=== PATIENT | female | born 1980 | race Caucasian/White ===

== ENCOUNTER 2019-09-01 14:15 | Emergency (ER) | payer BC | END 2019-09-01 18:20 | disposition home or self-care (01) | LOC: ERS 14:15 | DX: R51 Headache (principal); I10 Essential (primary) hypertension | CPT/HCPCS: 99283 ==

== ENCOUNTER 2019-09-16 18:35 | Emergency (ER) | payer BC ==
[2019-09-16] MEDS ORDERED: Ketorolac Tromethamine 30 MG/ML VIAL ONE (20:16)
[2019-09-16] MEDS ORDERED: diphenhydrAMINE 12.5 MG/5 ML UDCUP ONE (20:16)
[2019-09-16] MEDS ORDERED: Metoclopramide HCl 10 MG/2 ML VIAL ONE (20:16)
[2019-09-16] MEDS ORDERED: diphenhydrAMINE 50 MG/ML VIAL ONE (20:17)
[2019-09-16 20:52] LABS: Bilirubin Negative (Negative); Blood, Urine Negative (Negative); Clarity Clear (Clear); Glucose, Urine (Dipstick) Normal (Negative); Leukocyte Negative Leu/uL (Negative); Nitrite Negative (Negative); Protein, Urine (Dipstick) Negative (Neg-Trace); Urobilinogen Normal mg/dL (Less than 2)
--- NOTE | 2019-09-16 20:57 | RAD ---
Chest AP view INDICATION: Cough and shortness of breath COMPARISON: August 20, 2015 FINDINGS: Lungs:The lungs are clear Cardiac silhouette:The cardiomediastinal silhouette appears within normal limits. Pulmonary vasculature:Normal Pleural spaces:No pleural effusion or pneumothorax is demonstrated. Upper abdomen:No abnormality seen. Osseous structures: No acute osseous abnormality. Additional findings:None. IMPRESSION: No acute cardiopulmonary abnormality.
[2019-09-16 21:01] LABS: #Basophils 0.1 thou/uL (0.0-0.2); #Eosinphils 0.2 thou/uL (0.0-0.7); #Lymphocytes 1.6 thou/uL (1.20-3.40); #Monocytes 0.9 thou/uL (0.11-0.59); #Neutrophils 6.7 thou/uL (1.40-6.50); %Basophils 0.7 % (0.0-1.0); %Lymphocytes 17.3 % (21.0-51.0); %Neutrophils 71.1 % (42.0-75.0); Hemoglobin 12.5 g/dL (12.0-16.0); Mean Corpuscular HGB CONC 32.6 g/dL (32.0-36.0); Mean Corpuscular Hemoglobin 28.4 pg (27.0-31.0); Mean Corpuscular Volume 87.1 fL (78.0-98.0); Mean Platelet Volume 8.3 fL (7.4-10.4); Platelet Count 311 thou/uL (130-400); RBC Distribution Width 11.9 % (11.5-14.5); Red Blood Cell (RBC) Count 4.42 mill/uL (4.20-5.40); White Blood Cell (WBC) Count 9.5 thou/uL (4.8-10.8)
[2019-09-16 21:24] LABS: ALT (SGPT) 37 U/L (8-55); AST (SGOT) 24 U/L (5-34); Albumin 4.1 g/dL (3.5-5.0); Alkaline Phosphatase 65 U/L (40-110); Anion Gap 11 mmol/L (10-20); BUN (Urea Nitrogen) 16 mg/dL (7.0-18.7); Bilirubin, Total 0.2 mg/dL (0.2-1.2); Calc. Creatinine Clearance 0 mL/min (70-130); Calcium 8.9 mg/dL (7.8-10.44); Carbon Dioxide 32 mmol/L (22-29); Chloride 99 mmol/L (98-107); Estimated GFR-MDRD 75; Globulin 2.9 g/dL (2.4-3.5); Glucose 93 mg/dL (70-105); Potassium 3.7 mmol/L (3.5-5.1); Sodium 138 mmol/L (136-145)
== END 2019-09-16 22:37 | disposition home or self-care (01) ==
LOC: ERS 18:35
DX: R51 Headache (principal); J20.9 Acute bronchitis, unspecified; R11.0 Nausea; I10 Essential (primary) hypertension; E28.2 Polycystic ovarian syndrome; Z79.84 Long term (current) use of oral hypoglycemic drugs
CPT/HCPCS: 36415; 71045; 80053; 81003; 85025; 87804; 93005; 96361; 96365; 96375; J1200; J1885; J2765; Q0163

== ENCOUNTER 2020-06-12 04:30 | Emergency (ER) | payer BC ==
[2020-06-12] MEDS ORDERED: Dexamethasone 10 MG/ML VIAL ONE (05:11)
[2020-06-12] MEDS ORDERED: Ketorolac Tromethamine 30 MG/ML VIAL ONE (05:11)
== END 2020-06-12 05:40 | disposition home or self-care (01) ==
LOC: ERS 04:30
DX: M25.551 Pain in right hip (principal); G57.11 Meralgia paresthetica, right lower limb; E28.2 Polycystic ovarian syndrome; I10 Essential (primary) hypertension; Z79.84 Long term (current) use of oral hypoglycemic drugs
CPT/HCPCS: 96372; 99283; J1100; J1885

== ENCOUNTER 2020-10-04 12:45 | Emergency (ER) | payer BC ==
[2020-10-04] MEDS ORDERED: Ketorolac Tromethamine 30 MG/ML VIAL ONE (14:21)
[2020-10-04] MEDS ORDERED: Dexamethasone 4 MG TAB ONE (14:21)
--- NOTE | 2020-10-04 15:09 | RAD ---
Exam: 2 views lumbar spine HISTORY: Back pain x1.5 months. FINDINGS: 5 lumbar type vertebra. Lumbar spine vertebral body height is maintained. No fracture. Disc space heights are preserved Mild hypertrophic changes at L4 and L5 2.6 mm of retrolisthesis of L3 upon L4. 5.5 mm of anterolisthesis of L4 upon L5 IMPRESSION: Spondylolisthesis as above. No associated spondylolysis.
== END 2020-10-04 15:24 | disposition home or self-care (01) ==
LOC: ERS 12:45
DX: M43.16 Spondylolisthesis, lumbar region (principal); I10 Essential (primary) hypertension; E66.9 Obesity, unspecified; Z79.84 Long term (current) use of oral hypoglycemic drugs; Z79.899 Other long term (current) drug therapy
CPT/HCPCS: 72100; 96372; J1885; J8540

== ENCOUNTER 2021-02-07 13:34 | Inpatient (IN) | payer BC ==
[2021-02-07 14:03] LABS: #Basophils 0.1 thou/uL (0.0-0.2); #Eosinphils 0.4 thou/uL (0.0-0.7); #Lymphocytes 3.3 thou/uL (1.20-3.40); #Monocytes 0.7 thou/uL (0.11-0.59); #Neutrophils 7.5 thou/uL (1.40-6.50); %Basophils 0.8 % (0.0-1.0); %Lymphocytes 27.4 % (21.0-51.0); %Monocytes 6.1 % (0.0-10.0); %Neutrophils 62.7 % (42.0-75.0); Hemoglobin 14.3 g/dL (12.0-16.0); Mean Corpuscular HGB CONC 33.8 g/dL (32.0-36.0); Mean Corpuscular Hemoglobin 29.8 pg (27.0-31.0); Mean Corpuscular Volume 88.4 fL (78.0-98.0); Mean Platelet Volume 8.2 fL (7.4-10.4); Platelet Count 376 thou/uL (130-400); RBC Distribution Width 11.9 % (11.5-14.5); White Blood Cell (WBC) Count 11.9 thou/uL (4.8-10.8)
[2021-02-07 14:25] LABS: ALT (SGPT) 17 U/L (8-55); AST (SGOT) 12 U/L (5-34); Albumin 4.1 g/dL (3.5-5.0); Alkaline Phosphatase 65 U/L (40-110); Anion Gap 15 mmol/L (10-20); BUN (Urea Nitrogen) 13 mg/dL (7.0-18.7); Bilirubin, Total 0.2 mg/dL (0.2-1.2); Calc. Creatinine Clearance 0 mL/min (70-130); Calcium 9.4 mg/dL (7.8-10.44); Carbon Dioxide 24 mmol/L (22-29); Chloride 104 mmol/L (98-107); Globulin 3.2 g/dL (2.4-3.5); Glucose 128 mg/dL (70-105); Potassium 4.1 mmol/L (3.5-5.1); Protein, Total 7.3 g/dL (6.0-8.3); Sodium 139 mmol/L (136-145)
[2021-02-07 16:24] LABS: Troponin I Less than 0.010 ng/mL (< 0.028)
[2021-02-07] MEDS ORDERED: Aspirin Chewable 81 MG TAB ONE (17:07)
[2021-02-07] MEDS ORDERED: Nitroglycerin 0.4 MG TAB (25 Tab Bottle) SL PRN (17:55)
[2021-02-07] MEDS ORDERED: Ondansetron PF 4 MG/2 ML Vial IVP PRN (17:58)
[2021-02-07] MEDS ORDERED: Ondansetron ODT 4 MG TAB PO PRN (17:58)
[2021-02-07 18:42] VITALS: BMI 53.2
[2021-02-07] MEDS: Famotidine 20 MG TAB PO SCH (20:21)
[2021-02-07] MEDS: diphenhydrAMINE 25 MG CAP PO PRN (20:21)
[2021-02-07 20:34] LABS: Troponin I Less than 0.010 ng/mL (< 0.028)
[2021-02-07] MEDS: Nitroglycerin 2% Ointment 1 INCH/1 GM Packet TOP SCH (20:40)
[2021-02-07 22:58] LABS: Troponin I Less than 0.010 ng/mL (< 0.028)
[2021-02-08] MEDS: Acetaminophen 325 MG TAB PO PRN (02:19)
[2021-02-08 05:28] LABS: #Lymphocytes 4.1 thou/uL (1.20-3.40); #Neutrophils 6.4 thou/uL (1.40-6.50); %Basophils 0.6 % (0.0-1.0); %Eosinophils 3.3 % (0.0-10.0); %Lymphocytes 34.5 % (21.0-51.0); %Neutrophils 53.6 % (42.0-75.0); Hemoglobin 12.7 g/dL (12.0-16.0); Mean Corpuscular HGB CONC 32.7 g/dL (32.0-36.0); Mean Corpuscular Hemoglobin 28.9 pg (27.0-31.0); Mean Corpuscular Volume 88.4 fL (78.0-98.0); Mean Platelet Volume 8.1 fL (7.4-10.4); Platelet Count 330 thou/uL (130-400); RBC Distribution Width 11.8 % (11.5-14.5); Red Blood Cell (RBC) Count 4.38 mill/uL (4.20-5.40); White Blood Cell (WBC) Count 11.9 thou/uL (4.8-10.8)
[2021-02-08 05:29] LABS: #Basophils 0.1 thou/uL (0.0-0.2); #Eosinphils 0.4 thou/uL (0.0-0.7)
[2021-02-08] MEDS: diphenhydrAMINE 25 MG CAP PO PRN ×2 (05:34→20:21)
[2021-02-08 05:45] LABS: Anion Gap 14 mmol/L (10-20); BUN (Urea Nitrogen) 19 mg/dL (7.0-18.7); Calc. Creatinine Clearance 200 mL/min (70-130); Calcium 8.7 mg/dL (7.8-10.44); Carbon Dioxide 24 mmol/L (22-29); Cardiac Risk 4.8 (Less than 4.5); Chloride 103 mmol/L (98-107); Cholesterol 176 mg/dl (< 200 Desired); Glucose 115 mg/dL (70-105); HDL Cholesterol 37 mg/dL (>60 Neg Risk); LDL Cholesterol, Calculated 125 mg/dL; Potassium 3.7 mmol/L (3.5-5.1); Sodium 137 mmol/L (136-145); Triglycerides 70 mg/dL (Less than 150)
[2021-02-08] MEDS: Nitroglycerin 2% Ointment 1 INCH/1 GM Packet TOP SCH ×3 (06:59→20:21)
[2021-02-08] MEDS: Famotidine 20 MG TAB PO SCH (08:57)
[2021-02-08] MEDS: Aspirin Chewable 81 MG TAB PO SCH (08:57)
[2021-02-08] MEDS ORDERED: Regadenoson 0.4 MG/5 ML SYRINGE ONE (09:09)
[2021-02-08] MEDS ORDERED: Lisinopril 5 MG TAB PO SCH (14:15)
[2021-02-08] MEDS ORDERED: Gabapentin 300 MG CAP PO SCH (21:00)
[2021-02-09] MEDS: Nitroglycerin 2% Ointment 1 INCH/1 GM Packet TOP SCH (06:52)
[2021-02-09] MEDS: Aspirin Chewable 81 MG TAB PO SCH (08:22)
[2021-02-09] MEDS: Acetaminophen 325 MG TAB PO PRN (08:24)
[2021-02-09] MEDS: diphenhydrAMINE 25 MG CAP PO PRN (08:24)
[2021-02-09] MEDS ORDERED: Lisinopril 5 MG TAB PO SCH (09:00)
[2021-02-09] MEDS ORDERED: Famotidine 20 MG TAB PO SCH (09:00)
[2021-02-09 12:31] VITALS: BP 121/77; TEMP 98
== END 2021-02-09 15:03 | disposition home or self-care (01) | DRG 311 ==
LOC: ERS 13:34 → 2SW 17:06 → OBSVTOIN 02-09 12:24
PROVIDERS: ADMIT Internal Medicine; ATTEND Internal Medicine
DX: I20.9 Angina pectoris, unspecified (principal); Z68.43 Body mass index [BMI] 50.0-59.9, adult; I10 Essential (primary) hypertension; E66.01 Morbid (severe) obesity due to excess calories; M54.5 Low back pain; G89.29 Other chronic pain; E28.2 Polycystic ovarian syndrome; G62.9 Polyneuropathy, unspecified; G47.33 Obstructive sleep apnea (adult) (pediatric); Z79.84 Long term (current) use of oral hypoglycemic drugs; Z79.899 Other long term (current) drug therapy; Z90.49 Acquired absence of other specified parts of digestive tract
CPT/HCPCS: 36415; 71046; 78452; 80048; 80053; 80061; 84484; 85025; 85379; 93005; 93017; 94760; A9500; G0378; J2785; Q0163

== ENCOUNTER 2023-05-21 21:31 | Emergency (ER) | payer BC ==
[2023-05-21] MEDS ORDERED: Ketorolac Tromethamine 30 MG/ML VIAL ONE (22:45)
== END 2023-05-21 23:04 | disposition home or self-care (01) ==
LOC: ERS 21:31
DX: S39.012A Strain of muscle, fascia and tendon of lower back, initial encounter (principal); I10 Essential (primary) hypertension; E78.00 Pure hypercholesterolemia, unspecified
CPT/HCPCS: 96372; 99283; J1885

== ENCOUNTER 2024-09-18 16:13 | Emergency (ER) | payer BC ==
[2024-09-18 16:42] LABS: #Basophils 0.07 10x3/uL (0.0-0.2); %Basophils 0.6 % (0.0-1.0); %Eosinophils 2.8 % (0.0-10.0); %Lymphocytes 36.4 % (21.0-51.0); %Monocytes 5.5 % (0.0-10.0); %Neutrophils 54.4 % (42.0-75.0); Hematocrit 39.7 % (36.0-47.0); Hemoglobin 13.3 g/dL (12.0-16.0); Mean Corpuscular HGB CONC 33.5 g/dL (32.0-36.0); Mean Corpuscular Hemoglobin 29.3 pg (27.0-31.0); Mean Corpuscular Volume 87.4 fL (78.0-98.0); Mean Platelet Volume 10.2 fL (7.4-10.4); Platelet Count 350 10x3/uL (130-400); RBC Distribution Width 11.9 % (11.5-14.5); Red Blood Cell (RBC) Count 4.54 mill/uL (4.20-5.40)
[2024-09-18 16:57] LABS: ALT (SGPT) 24 U/L (Less than 34); AST (SGOT) 25 U/L (11-34); Alkaline Phosphatase 66 U/L (40-110); Anion Gap 13 mmol/L (10-20); BUN (Urea Nitrogen) 11 mg/dL (7.0-18.7); Bilirubin, Total 0.2 mg/dL (0.3-1.2); Calc. Creatinine Clearance 0 mL/min (70-130); Calcium 9.5 mg/dL (7.8-10.44); Carbon Dioxide 26 mmol/L (22-29); Chloride 102 mmol/L (98-107); Estimated GFR 72; Globulin 3.1 g/dL (2.4-3.5); Glucose 94 mg/dL (70-105); Protein, Total 7.1 g/dL (6.0-8.3); Sodium 137 mmol/L (136-145)
[2024-09-18 17:03] LABS: Troponin I Less than 0.010 ng/mL (< 0.028)
[2024-09-18] MEDS ORDERED: Nitroglycerin 0.4 MG TAB 1 EACH ONE ×2 (17:09→17:53)
[2024-09-18] MEDS ORDERED: Aspirin Chewable 81 MG TAB ONE (17:09)
[2024-09-18] MEDS ORDERED: Acetaminophen 500 MG TAB ONE (18:58)
[2024-09-18 19:45] LABS: Troponin I 0.011 ng/mL (< 0.028)
== END 2024-09-18 19:58 | disposition home or self-care (01) ==
LOC: ERS 16:13
DX: R07.9 Chest pain, unspecified (principal); I10 Essential (primary) hypertension
CPT/HCPCS: 36415; 71045; 80053; 83690; 83880; 84484; 85025; 85379; 93005; 94760